=== PATIENT | female | born 1970 | race Caucasian/White ===

== ENCOUNTER → 2017-05-24 | Outpatient (CLI) | payer BC ==
[~2017-05-24] MED LIST: ASPIRIN81 M2 PO; ATIVAN PO; BUSPAR10 MG PO; CRESTOR10 MG PO; FLEXERIL10 MG PO; GLUCOPHAGE500 MG PO; LOSARTAN POTASS25 MG PO; MICRO-K10 ME1 PO; MULTIVITAMIN1 EAC2 PO; NORCO 10/3251 TABLET PO; OXYCONTIN10 MG PO; PERCOCET 5/31 TABLET PO; PROTONIX40 MG PO; ROXICODONE15 MG PO; TOPROL XL6.25 MG PO; WELLBUTRIN SR150 MG PO; XANAX PO; XANAX0.5 MG PO; ZYRTEC10 M1 PO
== END | disposition home or self-care (01) ==
LOC: RES 09:45
DX: R05 Cough (principal)
CPT/HCPCS: 94060; 94726; 94729